=== PATIENT | male | born 1955 | race Caucasian/White ===

== ENCOUNTER 2016-06-12 16:40 | Outpatient (RCR) | payer BC ==
[~2016-06-12] VITALS: Ht 172.7 cm; Wt 118.5 kg
[~2016-06-12 16:40] MED LIST: ALDACTONE 100M100 MG PO; APRESOLINE 25MG25 MG PO; ASPIRIN E.C. 8181 MG PO; CALCIUM 600600 M2 PO; CATAPRES 0.1MG0.1 MG PO; CEFUROXIME AXE500 MG PO; LANTUS100 U/ML SC; LASIX40 M1 PO; LOPRESSOR 225 MG/TAB PO; MAG-OX 400400 MG/TAB PO; MULTIVITAMIN1 SGL PO; MYFORTIC360 MG PO; NATURE'S BLEND F1 MG PO; NORVASC 10MG10 MG PO; PRILOSEC 20MG20 MG PO; PRINIVIL10 M1 PO; PROGRAF 0.5MG0.5 MG PO; TEFLARO400 MG IV; VANCO 1.51.5 GM/250 IV; [UNRECOGNIZED DRUG - OTHER] PO
[2016-06-12 16:57] VITALS: BP 174/79
[2016-06-12 17:24] VITALS: BP 138/63
[2016-06-13 11:06] VITALS: BP 148/72
[2016-06-13 11:50] VITALS: BP 126/71
[2016-06-14 06:50] VITALS: BP 145/77
[2016-06-14 07:40] VITALS: BP 140/68
[2016-06-15 08:52] VITALS: BP 157/79
[2016-06-15 10:12] VITALS: BP 142/71
[2016-06-16 08:12] VITALS: BP 153/83
[2016-06-16 09:25] VITALS: BP 162/80
[2016-06-17 07:55] VITALS: BP 164/83
[2016-06-17 09:10] VITALS: BP 144/69
[2016-06-18 08:06] VITALS: BP 170/76
[2016-06-18 09:39] VITALS: BP 148/76
[2016-06-19 08:13] VITALS: BP 147/74
[2016-06-19 09:45] VITALS: BP 140/70
[2016-06-20 06:55] VITALS: BP 150/68
[2016-06-21 07:57] VITALS: BP 133/78
[2016-06-21 09:25] VITALS: BP 150/64
[2016-06-22 07:55] VITALS: BP 150/73
[2016-06-22 09:08] VITALS: BP 145/70
[2016-06-23 08:22] VITALS: BP 143/72
== END 2016-09-10 | disposition home or self-care (01) ==
LOC: AMSURD
DX: T81.4XXA Infection following a procedure, initial encounter (principal); L02.211 Cutaneous abscess of abdominal wall; B95.62 Methicillin resistant Staphylococcus aureus infection as the cause of diseases classified elsewhere
CPT/HCPCS: J0878; J1644

== ENCOUNTER → 2016-12-11 | Outpatient (CLI) | payer BC | LOC: LAB 07:59 | DX: E87.5 Hyperkalemia (principal) ==

== ENCOUNTER → 2017-03-05 | Outpatient (REF) | LOC: LAB 08:47 | DX: Z01.89 Encounter for other specified special examinations (principal) ==

== ENCOUNTER → 2017-04-30 | Outpatient (CLI) | payer MEDICARE | LOC: LAB 10:04 | DX: Z94.4 Liver transplant status (principal) ==

== ENCOUNTER → 2017-06-12 | Outpatient (CLI) | payer MEDICARE | LOC: LAB 08:43 | DX: Z94.4 Liver transplant status (principal); Z79.899 Other long term (current) drug therapy ==

== ENCOUNTER → 2017-07-17 | Outpatient (CLI) | payer MEDICARE ==
[2017-07-17 10:12] LABS: HEMATOCRIT 34.1 % (42.0-52.0); HEMOGLOBIN 10.7 g/dL (13.5-18.0); LYMPH# 3.7 (1.50-4.00); MEAN CELL VOLUME 91 fl (78-100); MEAN CORPUSCULAR HEMOGLOBIN 29 pg (27-31); MEAN CORPUSCULAR HGB CONC 31 g/dL (33-37); MEAN PLATELET VOLUME 9.6 fl (7.4-10.4); MONO # 0.8 (0.20-0.80); NEU # 4.8 (1.40-6.50); PLATELET COUNT 283 K/mm3 (130-400); RED BLOOD COUNT 3.75 M/mm3 (4.20-5.60); RED CELL DISTRIBUTION WIDTH 14.8 % (11.5-14.5); WHITE BLOOD COUNT 10.1 K/mm3 (4.8-10.8)
[2017-07-17 10:21] LABS: EOS # 0.7 (0.04-0.40); EOS % 7.3 % (0.0-4.0)
[2017-07-17 10:36] LABS: ALBUMIN 3.7 g/dL (3.5-5.0); BUN/CREATININE RATIO 21.5 (6.0-26.0); CALCIUM 9.5 mg/dL (8.4-10.2); POTASSIUM 5.3 mmol/L (3.6-5.0); TOTAL BILIRUBIN 0.4 mg/dL (0.2-1.3); TOTAL PROTEIN 6.8 g/dL (6.3-8.2)
[2017-07-19 13:21] LABS: TACROLIMUS (PROGRAF) 3.4 ng/mL (5.0-15.0)
== END ==
LOC: LAB 09:54
PROVIDERS: Internal Medicine
DX: E11.9 Type 2 diabetes mellitus without complications (principal); Z94.4 Liver transplant status; Z79.899 Other long term (current) drug therapy

== ENCOUNTER → 2017-09-25 | Outpatient (CLI) | payer MEDICARE ==
[2017-09-25 10:14] LABS: BASO # 0.1 (0.02-0.10); EOS # 0.4 (0.04-0.40); EOS % 4.6 % (0.0-4.0); HEMATOCRIT 35.6 % (42.0-52.0); HEMOGLOBIN 10.9 g/dL (13.5-18.0); LYMPH# 3.4 (1.50-4.00); MEAN CELL VOLUME 93 fl (78-100); MEAN CORPUSCULAR HEMOGLOBIN 28 pg (27-31); MEAN CORPUSCULAR HGB CONC 31 g/dL (33-37); MONO # 0.7 (0.20-0.80); NEU # 4.8 (1.40-6.50); PLATELET COUNT 267 K/mm3 (130-400); RED BLOOD COUNT 3.85 M/mm3 (4.20-5.60); RED CELL DISTRIBUTION WIDTH 14.2 % (11.5-14.5); WHITE BLOOD COUNT 9.4 K/mm3 (4.8-10.8)
[2017-09-25 10:36] LABS: ALBUMIN 3.9 g/dL (3.5-5.0); BUN/CREATININE RATIO 16.7 (6.0-26.0); CALCIUM 8.8 mg/dL (8.4-10.2); POTASSIUM 5.2 mmol/L (3.6-5.0); TOTAL BILIRUBIN 0.5 mg/dL (0.2-1.3); TOTAL PROTEIN 7.1 g/dL (6.3-8.2)
== END ==
LOC: LAB 09:53
PROVIDERS: Internal Medicine
DX: Z79.899 Other long term (current) drug therapy (principal); Z94.4 Liver transplant status

== ENCOUNTER → 2018-01-05 | Day surgery (SDC) | payer MEDICARE | LOC: MSO 09:52 | DX: Z12.11 Encounter for screening for malignant neoplasm of colon (principal); K63.5 Polyp of colon; K57.30 Diverticulosis of large intestine without perforation or abscess without bleeding; Z94.4 Liver transplant status; D64.9 Anemia, unspecified; Z79.899 Other long term (current) drug therapy; K21.9 Gastro-esophageal reflux disease without esophagitis; E11.9 Type 2 diabetes mellitus without complications; I10 Essential (primary) hypertension; Z79.84 Long term (current) use of oral hypoglycemic drugs; Z79.82 Long term (current) use of aspirin; Z87.891 Personal history of nicotine dependence | CPT/HCPCS: 00811; J2704; J3010; J7030 ==

== ENCOUNTER → 2018-08-16 | Outpatient (CLI) | payer MEDICARE | LOC: RAD 09:51 → MAMMO 10:00 | DX: Z13.820 Encounter for screening for osteoporosis (principal); M85.852 Other specified disorders of bone density and structure, left thigh; Z94.4 Liver transplant status ==

== ENCOUNTER → 2021-05-10 | Outpatient (CLI) | payer MEDICARE | LOC: RAD 07:23 | DX: Z48.89 Encounter for other specified surgical aftercare (principal); Z94.4 Liver transplant status ==

== ENCOUNTER → 2024-08-12 | Outpatient (CLI) | payer MEDICARE | LOC: RAD 12:11 | DX: J98.11 Atelectasis (principal) ==